=== PATIENT | male | born 1975 | race African-American/Black ===

== ENCOUNTER 2021-07-11 13:52 | Emergency (ER) | payer OTHER ==
[2021-07-11 14:04] VITALS: BP 163/101; PULSE 77; TEMP 97.7; BMI 32.1
[2021-07-11] MEDS ORDERED: BACITRACIN 15 GM TUBE TOPICAL OINTMENT TP ONE (14:53)
[2021-07-11] MEDS ORDERED: KETOROLAC TROMETHAMINE 30 MG/1 ML VIAL IM ONE (14:53)
[2021-07-11] MEDS ORDERED: KETOROLAC TROMETHAMINE 30 MG/1 ML VIAL ONE (15:11)
[2021-07-11] MEDS ORDERED: BACITRACIN 0.9 GM PACKET ONE (15:11)
== END 2021-07-11 16:37 | disposition home or self-care (01) ==
LOC: JER 13:52
PROC: 0HQEXZZ Repair Left Lower Arm Skin, External Approach (ICD-10-PCS; principal; 2021-07-11)
PROC: 3E023GC Introduction of Other Therapeutic Substance into Muscle, Percutaneous Approach (ICD-10-PCS; 2021-07-11)
DX: S51.012A Laceration without foreign body of left elbow, initial encounter (principal); V18.0XXA Pedal cycle driver injured in noncollision transport accident in nontraffic accident, initial encounter
CPT/HCPCS: 99284-25